=== PATIENT | male | born 1995 | race Caucasian/White ===

== ENCOUNTER 2022-09-12 08:18 | Observation (INO) | payer BC ==
[2022-09-12] MEDS ORDERED: Ketorolac Tromethamine 30 MG/ML VIAL ONE ×2 (09:00→09:01)
[2022-09-12] MEDS ORDERED: Diazepam 10 MG/2 ML SYRINGE ONE (09:00)
[2022-09-12] MEDS ORDERED: Morphine 4 MG/ML VIAL ONE (10:58)
[2022-09-12] MEDS ORDERED: Dexamethasone 10 MG/ML VIAL ONE (10:59)
[2022-09-12] MEDS ORDERED: diphenhydrAMINE 50 MG/ML VIAL ONE (11:28)
[2022-09-12 14:57] LABS: #Basophils 0.1 thou/uL (0.0-0.2); #Lymphocytes 1.2 thou/uL (1.20-3.40); #Monocytes 0.1 thou/uL (0.11-0.59); #Neutrophils 6.6 thou/uL (1.40-6.50); %Basophils 0.8 % (0.0-1.0); %Eosinophils 0.4 % (0.0-10.0); %Lymphocytes 14.7 % (21.0-51.0); %Monocytes 1.4 % (0.0-10.0); %Neutrophils 82.7 % (42.0-75.0); Hemoglobin 15.5 g/dL (14.0-18.0); Mean Corpuscular HGB CONC 33.9 g/dL (32.0-36.0); Mean Corpuscular Hemoglobin 31.5 pg (27.0-31.0); Mean Corpuscular Volume 92.8 fl (78.0-98.0); Mean Platelet Volume 7.5 fL (7.4-10.4); Platelet Count 304 10x3/uL (130-400); RBC Distribution Width 12.1 % (11.5-14.5); Red Blood Cell (RBC) Count 4.93 mill/uL (4.70-6.10); White Blood Cell (WBC) Count 7.9 10x3/uL (4.8-10.8)
[2022-09-12 15:13] LABS: Anion Gap 15 mmol/L (10-20); BUN (Urea Nitrogen) 14 mg/dL (8.9-20.6); Calc. Creatinine Clearance 0 mL/min (70-130); Calcium 9.7 mg/dL (7.8-10.44); Carbon Dioxide 21 mmol/L (22-29); Chloride 107 mmol/L (98-107); Estimated GFR 107; Glucose 125 mg/dL (70-105); Potassium 4.3 mmol/L (3.5-5.1); Sodium 139 mmol/L (136-145)
[2022-09-12] MEDS ORDERED: Orphenadrine Citrate 60 MG/2 ML VIAL ONE (16:06)
[2022-09-12 16:35] LABS: Bilirubin Negative (Negative); Blood, Urine Negative (Negative); Clarity Clear (Clear); Glucose, Urine (Dipstick) Normal (Negative); Ketone, Urine Negative (Negative); Leukocyte Negative Leu/uL (Negative); Nitrite Negative (Negative); Protein, Urine (Dipstick) Negative (Neg-Trace); Urobilinogen Normal mg/dL (Less than 2)
[2022-09-12] MEDS ORDERED: Acetaminophen 500 MG TAB PO PRN (17:33)
[2022-09-12] MEDS ORDERED: Ketorolac Tromethamine 30 MG/ML VIAL IVP PRN (17:33)
[2022-09-12] MEDS ORDERED: Ketorolac Tromethamine 30 MG/ML VIAL IVP SCH (17:51)
[2022-09-12] MEDS: Gabapentin 100 MG CAP PO PRN (20:01)
[2022-09-12 21:21] VITALS: BMI 48.6
[2022-09-13] MEDS: Cyclobenzaprine 10 MG TAB PO PRN ×2 (00:16→08:26)
[2022-09-13] MEDS: Gabapentin 100 MG CAP PO PRN (08:26)
[2022-09-13] MEDS ORDERED: traMADol HCl 50 MG TAB PO PRN ×2 (09:19→09:24)
[2022-09-13] MEDS ORDERED: Lidocaine 4% Patch TD PRN (09:24)
[2022-09-13] MEDS ORDERED: Transdermal Patch Removal TOP PRN (09:29)
[2022-09-13] MEDS ORDERED: Acetaminophen 500 MG TAB PO SCH (12:00)
[2022-09-13 13:38] VITALS: BP 128/62; TEMP 97.5
[2022-09-14] MEDS ORDERED: Lidocaine 4% Patch TD SCH (09:00)
== END 2022-09-13 16:00 | disposition home or self-care (01) ==
LOC: ERS 08:18 → ERHOLD 14:56 → MSONC 18:51
PROVIDERS: ADMIT Family Medicine; ATTEND Family Medicine
DX: M51.27 Other intervertebral disc displacement, lumbosacral region (principal); M48.07 Spinal stenosis, lumbosacral region; K21.9 Gastro-esophageal reflux disease without esophagitis; Z86.718 Personal history of other venous thrombosis and embolism; Z14.8 Genetic carrier of other disease; Z79.899 Other long term (current) drug therapy; Z88.5 Allergy status to narcotic agent
CPT/HCPCS: 36415; 72131; 80048; 81003; 85025; 96372; 96374; 96375; 96376; G0378; J1100; J1200; J1650; J1885; J2270; J2360; J3360